=== PATIENT | female | born 1990 | race Two or more races ===

== ENCOUNTER 2024-07-17 10:51 | Emergency (ER) | payer MEDICAID, OTHER ==
[~2024-07-17] VITALS: Ht 165.1 cm; Wt 114.6 kg
[2024-07-17 12:17] LABS: Urine Bacteria FEW /hpf (None Seen); Urine Blood 2+ /uL (Negative); Urine Clarity Clear (Clear); Urine Color Colorless (Yellow); Urine Protein, UAD Negative (Negative); Urine Specific Gravity 1.003 (1.001-1.035); Urine Urobilinogen Normal (Negative); Urine WBC 14 /hpf (0 - 5); Urine pH 6.5 (5.0-9.0)
--- NOTE | 2024-07-17 13:10 | ED.PDOC ---
BEAM DYER HPI Comments 34y F who presents to the for chief complaint of vaginal bleeding. Pt states she has been having vaginal bleeding with associated vaginal spotting since 1 days prior. Pt LMP is 05/28/24. Pt states she is having associate suprapubic pain and is with 1 prior and unknown estimated date of delivery. Pt has stable vitals in the ED, with temp of 98.0 F and BP of 116/76. Pt otherwise denies any other symptoms at this time. Chief Complaint: Vaginal Bleed Time Seen by MD: 13:08 Reviewed Notes: Nurses Notes Allergies: Coded Allergies: NO KNOWN ALLERGIES (Unverified , 07/17/24) Information Source: Patient Constitutional: denies: chills, diaphoresis, fatigue, fever, malaise, sweats, weakness, others EENTM: denies: blurred vision, double vision, ear bleeding, ear discharge, ear drainage, ear pain, ear ringing, eye pain, eye redness, hearing loss, mouth pain, mouth swelling, nasal discharge, nose bleeding, nose congestion, nose pain, photophobia, tearing, throat pain, throat swelling, voice changes, others Respiratory: denies: cough, hemoptysis, orthopnea, SOB at rest, shortness of breath, SOB with excertion, stridor, wheezing, others Cardiovascular: denies: chest pain, dizzy spells, diaphoresis, Dyspnea on exertion, edema, irregular heart beat, left arm pain, lightheadedness, palpitations, PND, syncope, others Gastrointestinal: denies: abdomen distended, abdominal pain, blood streaked bowels, constipated, diarrhea, dysphagia, difficulty swallowing, hematemesis, melena, nausea, poor appetite, poor fluid intake, rectal bleeding, rectal pain, vomiting, others Genitourinary: reports: abnormal vagina bleeding; denies: burning, dyspareunia, dysuria, flank pain, frequency, hematuria, incontinence, pain, , vagina discharge, urgency, others Neurological: denies: dizziness, fainting, headache, left sided numbness, left sided weakness, numbness, paresthesia, pre-existing deficit, right sided numbness, right sided weakness, seizure, speech problems, tingling, tremors, weakness, others Musculoskeletal: denies: back pain, gout, joint pain, joint swelling, muscle pain, muscle stiffness, neck pain, others Integumetry: denies: bruises, change in color, change in hair/nails, dryness, laceration, lesions, lumps, rash, wounds, others Allergic/Immunocompromised: denies: Difficulty Healing, Frequent Infections, Hives, Itching, others Hematologic/Lymphatic: denies: anemia, blood clots, easy bleeding, easy bruising, swollen glands, others Endocrine: denies: excessive hunger, excessive sweating, excessive thirst, excessive urination, flushing, intolerance to cold, intolerance to heat, unexplained weight gain, unexplained weight loss, others Psychiatric: denies: anxiety, bipolar disorder, depression, hopeless, panic disorder, schizophrenia, sleepless, suicidal, others All Other Systems: Reviewed and Negative Physical Exam General Appearance: No Apparent Distress, Normal HEENT: Normal ENT Inspection, Pharynx Normal, TMs Normal Neck: Full Range of Motion, Non-Tender, Normal, Normal Inspection Respiratory: Chest Non-Tender, Lungs Clear, No Accessory Muscle Use, No Respiratory Distress, Normal Breath Sounds Cardiovascular: No Edema, No JVD, No Murmur, No Gallop, Normal Peripheral Pulses, Regular Rate/Rhythm Breast Exam: Deferred Gastrointestinal: Suprapubic (tenderness but pain is minimal), Tenderness Genitalia: Deferred Pelvic: Deferred Rectal: Deferred Extremities: No calf tenderness, Normal capillary refill, Normal inspection, Normal range of motion, Non-tender, No pedal edema Musculoskeletal : Apperance: Normal Neurologic: Alert, financial administrative assistant II-XII nml as Tested, No Motor Deficits, Normal Affect, Normal Mood, No Sensory Deficits Cerebellar Function: Normal Reflexes: Normal Skin: Dry, Normal Color, Warm Lymphatic: No Adenopathy Was a procedure done? Was a procedure done?: No Differential Diagnosis (TRAVELING BUYER) Vaginal Bleeding: - Complete, - Incomplete, - Inevitable, - Missed, Abruptio Placentae, Ectopic , Hormonal, UTI, Vaginitis X-Ray, Labs, Meds, VS Vital Signs Date Time Temp Pulse Resp B/P (MAP) Pulse Ox O2 Delivery O2 Flow Rate FiO2 07/17/24 17:30 80 18 109/67 (81) 98 07/17/24 17:30 80 18 98 Room Air* 0 21 07/17/24 15:33 69 20 99 Room Air 07/17/24 15:33 98.8 80 20 126/75 (92) 99 98.8 07/17/24 11:16 98.0 70 18 116/76 (89) 98 Lab Test 07/17/24 13:26 07/17/24 11:55 Range/Units Beta HCG, Quantitative 77858.8 H 1.5-4.2 mIU/mL Urine Color Colorless Yellow Urine Clarity Clear Clear Urine pH 6.5 5.0-9.0 Urine Specific [place] 1.003 1.001-1.035 Urine Protein Negative Negative Urine Ketones Negative Negative Urine Blood 2+ H Negative /uL Urine Nitrite Negative Negative Urine Bilirubin Negative Negative Urine Urobilinogen Normal Negative mg/dL Urine Leukocyte Esterase 2+ Negative /uL Urine RBC 1 0 - 4 /hpf Urine WBC 14 0 - 5 /hpf Urine Squamous Epithelial Cells Few <5 /hpf Urine Bacteria Few H None Seen /hpf Urine Glucose Normal Normal mg/dL Urine Test Positive Negative Current Medications Medications (Trade) Dose Ordered Sig/Jordana Route Start Time Stop Time Status Last Admin Cephalexin (Keflex Capsule) 500 mg ONCE ONCE PO 07/17/24 17:00 07/17/24 17:23 DC 07/17/24 17:30 Time of 1ST Reevaluation: 13:40 Reevaluation 1ST: Unchanged Time of 2ND Reevaluation: 18:12 Reevaluation 2ND: Improved Patient Education/Counseling: Diagnosis, Treatment Family Education/Counseling: No Family Present Additional Information - I reviewed the following notes from patient's past medical encounters: - The following tests were ordered, and results were reviewed by me: (Labs): UA, urine test - Additional information was gathered from interviewing the following independent Historian: (Family) - I reviewed and agreed with the following test results read by other provider: ( US): none - I discussed treatments and results with medical personnel and: ( family): none Departure 1 Departure Time of Disposition: 18:13 Impression: Primary Impression: UTI (urinary tract infection) Qualified Codes: N30.00 - Acute cystitis without hematuria Additional Impression: Miscarriage, threatened, early Disposition: 01 HOME / SELF CARE / HOMELESS Condition: Good Additional Instructions: follow up with y our doctor in 2 days e-Prescriptions Cephalexin Monohydrate (Cephalexin) 500 Mg Cap 500 MG PO Q6HR for 7 Days, #28 MG Prov: GORDON NEWELL MD 07/17/24 Discharged With: Self Critical Care Note Critical Care Time?: No Stability Stability form required: No Heart Score Heart Score: Heart Score Response (Comments) Value History N/A 0 EKG N/A 0 Age N/A 0 Risk Factors N/A 0 Troponin N/A 0 Total 0 I personally scribed for GORDON NEWELL MD ([email or web address]) on 07/17/24 at 13:09. Electronically submitted by Josse Ji ([facility]). GORDON NEWELL MD Jul 17, 2024 13:09
--- NOTE | 2024-07-17 14:11 | DVH ---
OB ULTRASOUND <14 WEEKS: HISTORY: VAG BLEED TECHNIQUE: Multiple real-time grayscale sonographic images of the pelvis with duplex Doppler color f low, spectral and M-mode analysis. TRANSDUCERS: Transabdominal and transvaginal COMPARISON: None FINDINGS: The uterus measures 13.2 x 8.6 x 7.0 cm The cervix is not visualized. Right ovary measures 4.9 x 2.5 x 2.9 cm with normal Doppler color flow. Right ovarian cysts are prese nt measuring up to 2.9 cm. Left ovary measures 3.2 x 1.9 x 2.2 cm with normal Doppler color flow. IUP single fetus at 6 weeks and 4 days average ultrasound age based on mean crown-rump length of 0.7 cm and gestational sac size of 1.8 cm heart rate detected at 132 beats per minute. Yolk sac is present. Amniotic fluid is subjectively within normal limits Megan-gestational space: Subchorionic hematoma is present measuring 1.6 cm. IMPRESSION: IUP single live fetus 6 weeks and 4 days AUA corresponding to an STEVEN of 03/08/2025. Small subchorionic hematoma is present measuring 1.6 cm.
[2024-07-17 15:33] VITALS: TEMP 98.8
[2024-07-17 17:30] VITALS: BP 109/67; PULSE 80; RESP 18; O2SAT 98
[2024-07-17] MEDS: CEPHALEXIN 250 MG CAP PO ONE (17:30)
[2024-07-17] MEDS ORDERED: CEPH500C PO (18:14)
== END 2024-07-17 18:40 | disposition home or self-care (01) ==
LOC: ER 10:51
DX: O20.0 Threatened abortion (principal); O23.41 Unspecified infection of urinary tract in pregnancy, first trimester; N39.0 Urinary tract infection, site not specified; Z3A.01 Less than 8 weeks gestation of pregnancy
CPT/HCPCS: 36415; 76801; 76817; 81001; 81025; 84702; 86901

== ENCOUNTER 2025-01-26 08:49 | Outpatient (CLI) | payer MEDICAID ==
[~2025-01-26 08:49] MED LIST: CEPH500C PO; NITR-87 PO; PHEN-922 PO
[2025-01-27 10:30] LABS: Hematocrit 40.5 % (36.0-46.0); Hemoglobin 13.6 g/dL (12.2-16.2); Mean Corpuscular Hemoglobin 29.5 pg (28.0-32.0); Mean Corpuscular Volume 88.0 fL (80.0-100.0); Nucleated Red Blood Cells % 0.1 %
[2025-01-27 11:25] LABS: Amphetamine Screen, Urine Neg (NEGATIVE); Barbiturate Scree,Urine Neg (NEGATIVE); Benzodiazephine Screen, Urine Neg (NEGATIVE); Cocaine Screen, Urine Neg (NEGATIVE); Opiate Scree,Urine Neg (NEGATIVE); Phencyclidine Screen, Urine Neg (NEGATIVE)
[2025-01-27 11:27] LABS: Cannabinoid Screen, Urine Neg (NEGATIVE)
== END 2025-01-26 19:28 | disposition home or self-care (01) ==
LOC: LAB 08:49
PROVIDERS: ATTEND Obstetrics & Gynecology
DX: O23.40 Unspecified infection of urinary tract in pregnancy, unspecified trimester (principal); N39.0 Urinary tract infection, site not specified; Z31.430 Encounter of female for testing for genetic disease carrier status for procreative management; Z20.09 Contact with and (suspected) exposure to other intestinal infectious diseases; Z3A.00 Weeks of gestation of pregnancy not specified
CPT/HCPCS: 36415; 80307; 82951; 83036; 84144; 84702; 85025; 86703; 86762; 86780; 86850; 86900; 86901; 87086; 87340

== ENCOUNTER 2025-02-02 16:44 | Observation (INO) | payer SELFPAY ==
[~2025-02-02] VITALS: Ht 172.7 cm; Wt 122.5 kg
--- NOTE | 2025-02-02 17:47 | DVH ---
BIOPHYSICAL PROFILE HISTORY: FALL/GDMA1 TECHNIQUE: Multiple transabdominal real-time grayscale sonographic images through the gravid uterus of the fetus with duplex Doppler color flow and M-mode spectral analysis FINDINGS: BIOPHYSICAL PROFILE: breathing score: 2 movement score: 2 tone score: 2 Quantitative LOLA score: 2 (LOLA: 17.4 Cm.) Total score: 8 4/8 The cervix not measured Single live fetus in breech presentation. heart rate 136 beats per minute. Anterior Grade 2 placenta without previa or abruption Single live fetus at35 weeks 4 days. Possible nuchal cord Biophysical profile score 8/8 corresponding to an STEVEN of 03/05/2025 IMPRESSION: 1. Biophysical profile score: 8/8
[2025-02-02 20:01] LABS: Urine Protein, UAD Negative (Negative)
[2025-02-02] MEDS: LACTATED RINGER'S 1,000 ML IV ONE (20:42)
[2025-02-02] MEDS ORDERED: CEPH250C PO (22:20)
--- NOTE | 2025-02-03 14:16 | DVHDS2 ---
Physician Discharge Progress N Final Diagnosis: s/p fall 35wks,gdm Operations or Procedures: Operations or Procedures nst reactive reviwed,sono Condition on Discharge: Good Disposition: Home Discharge Instructions: Diet: Consistent carbohydrate Activity: No Restrictions, As Tolerated Medications: na Follow Up Care: Specialist: 2d Discharge Statement: "Patient was advised to return to the ER or call 911 if any headaches, dizziness, shortness of breath, chest pain, abdominal pain, bleeding, fevers, or worsening of medical condition. Patient was counseled about treatment plan, medications, possible side effects, patientverbalized understanding. All questions were answered to the best of my ability. This discharge took greater then 30 minutes in planning, reviewing documentation, counseling the patient, and discussing with other team members." Visit Coding OBGYN Date of Service: Feb 02, 2025 Billing Provider: AZAR FISHER DO DIRECTOR OF PARKS AND RECREATION Common Visit Codes: 60035-UGBZFZJ OBS CARE (HIGH) DIRECTOR OF PARKS AND RECREATION Procedure Codes: 87915-64- NON-STRESS TEST AZAR FISHER DO Feb 03, 2025 14:16
== END 2025-02-02 21:15 | disposition home or self-care (01) ==
LOC: LDRP 16:44
PROVIDERS: ADMIT Obstetrics & Gynecology; ATTEND Obstetrics & Gynecology
DX: O24.419 Gestational diabetes mellitus in pregnancy, unspecified control (principal); Z98.890 Other specified postprocedural states; Z79.899 Other long term (current) drug therapy; Z3A.35 35 weeks gestation of pregnancy; W18.39XA Other fall on same level, initial encounter; Y93.89 Activity, other specified; Y92.89 Other specified places as the place of occurrence of the external cause; Y99.8 Other external cause status
CPT/HCPCS: 76818; 81001; 81002; 82962; 84112; 94760; 96360; G0378; 59025; 76819

== ENCOUNTER 2025-02-09 07:37 | Observation (INO) | payer SELFPAY ==
[~2025-02-09 07:37] MED LIST changes: +CEPH250C PO
--- NOTE | 2025-02-09 12:44 | DVH ---
CLINICAL HISTORY: Gestational diabetes. COMPARISON: US BIOPHYSICAL PROFILE on DOS: 02/02/25 TECHNIQUE: biophysical profile was performed. Transabdominal sonographic images of the fetus we re obtained. FINDINGS: The fetus is in breech position. heart rate measures 139 BPM. Amniotic fluid index me asures 25.6 cm. The placenta is anterior in position without visualized evidence for previa or abrupt ion. BPP profile is an overall score of 8/8, with 2/2 points for breathing, with at least one episode of breathing over a 30 second duration during a 30 minute observation, 2/2 points for m ovements, with 3 or more discrete body or limb movements, 2/2 points for tone, with one or more episodes of extremity extension with return to flexion, or opening and closing of hand, and 2/ 2 points for amniotic fluid, with at least 1 pocket of amniotic fluid that measures 2 cm in 2 perpend icular planes. IMPRESSION: 1. BPP score of 8/8. 2. Breech position. 3. Amniotic fluid index of 25.6.
[2025-02-09] MEDS ORDERED: PREN-96 PO (12:58)
--- NOTE | 2025-02-09 13:33 | DVHDS2 ---
Physician Discharge Progress N Final Diagnosis: testing for GDM, A1 Secondary Diagnosis: polyhydramnios Operations or Procedures: Operations or Procedures 35yo IUP@36.4wks VSS NST reactive FKC/PTL precautions reviewed Dr. Weiss consulted, agrees with POC. Other Interventions Other Interventions [address] [address] Ph: [phone] DIAGNOSTIC IMAGING Diagnostic Imaging Report : [id number] Signed PATIENT: ALEXANDRU MUÑOZ LACCT: [id number] UNIT: [id number] : 1990 LOC: LD ROOM / BED: [facility] / A AGE / SEX: 35 / F ADM STATUS: ADM IN SERVICE 115 ORDERING PHYSICIAN: CARLOS ALBERTO YANEZ CNM PROCEDURE(s): BPP - BIOPHYSICAL PROFILE REASON: GDMA2 ORDER NUMBER(s): [id number], ACCESSION NUMBER(s): [id number] CLINICAL HISTORY: Gestational diabetes. COMPARISON: US BIOPHYSICAL PROFILE on DOS: 02/02/25 TECHNIQUE: biophysical profile was performed. Transabdominal sonographic images of the fetus were obtained. FINDINGS: The fetus is in breech position. heart rate measures 139 BPM. Amniotic fluid index measures 25.6 cm. The placenta is anterior in position without visualized evidence for previa or abruption. BPP profile is an overall score of 8/8, with 2/2 points for breathing, with at least one episode of breathing over a 30 second duration dur ing a 30 minute observation, 2/2 points for movements, with 3 or more discrete body or limb movements, 2/2 points for tone, with one or more episodes of extremity extension with return to flexion, or opening and closing of hand, and 2/2 points for amniotic fluid, with at least 1 pocket of amniotic fluid that measures 2 cm in 2 perpendicular planes. IMPRESSION: 1. BPP score of 8/8. 2. Breech position. 3. Amniotic fluid index of 25.6. ATED BY: LEX GILMORE DO DICTATED DATE/TIME: 02/09/25 1241 SIGNED BY: LEX GILMORE DO SIGNED DATE/TIME: 02/09/25 1241 CC: Condition on Discharge: Stable Disposition: Home Discharge Instructions: Diet: Consistent carbohydrate Activity: No Restrictions, As Tolerated Medications: see med list Follow Up Care: Specialist: f/u in 1wk Discharge Statement: "Patient was advised to return to the ER or call 911 if any headaches, dizziness, shortness of breath, chest pain, abdominal pain, bleeding, fevers, or worsening of medical condition. Patient was counseled about treatment plan, medications, possible side effects, patientverbalized understanding. All questions were answered to the best of my ability. This discharge took greater then 30 minutes in planning, reviewing documentation, counseling the patient, and discussing with other team members." Visit Coding OBGYN Date of Service: Feb 09, 2025 Billing Provider: CARLOS ALBERTO YANEZ CNM DEPUTY CLERK Common Visit Codes: 78905-[id number] OBS CARE (HIGH) DEPUTY CLERK Procedure Codes: 58606-94- NON-STRESS TEST CARLOS ALBERTO YANEZ CNM Feb 09, 2025 13:33
== END 2025-02-09 13:16 | disposition home or self-care (01) ==
LOC: LDRP 11:53
PROVIDERS: ADMIT Obstetrics & Gynecology; ATTEND Obstetrics & Gynecology
DX: O24.419 Gestational diabetes mellitus in pregnancy, unspecified control (principal); O40.3XX0 Polyhydramnios, third trimester, not applicable or unspecified; Z3A.36 36 weeks gestation of pregnancy; Z98.890 Other specified postprocedural states; Z79.899 Other long term (current) drug therapy
CPT/HCPCS: 76818; 81002; 82948; 94760; G0378; 59025; 76819

== ENCOUNTER 2025-02-16 00:47 | Observation (INO) | payer SELFPAY ==
[~2025-02-16 00:47] MED LIST changes: +PREN-96 PO
--- NOTE | 2025-02-16 13:52 | DVHDS2 ---
Physician Discharge Progress N Final Diagnosis: testing for GDM, A1 Operations or Procedures: Operations or Procedures 35yo IUP@37.4wks VSS NST reactive FKC/Labor precautions reviewed. Condition on Discharge: Stable Disposition: Home Discharge Instructions: Diet: Consistent carbohydrate Activity: No Restrictions, As Tolerated Follow Up/Referral: as scheduled. Medications: see med list Follow Up Care: Specialist: f/u in 1 wk Discharge Statement: "Patient was advised to return to the ER or call 911 if any headaches, dizziness, shortness of breath, chest pain, abdominal pain, bleeding, fevers, or worsening of medical condition. Patient was counseled about treatment plan, medications, possible side effects, patientverbalized understanding. All questions were answered to the best of my ability. This discharge took greater then 30 minutes in planning, reviewing documentation, counseling the patient, and discussing with other team members." Visit Coding OBGYN Date of Service: Feb 16, 2025 Billing Provider: CARLOS ALBERTO YANEZ CNM ALLERGIST/MD Common Visit Codes: 49322-[id number] OBS CARE (HIGH) ALLERGIST/MD Procedure Codes: 06024-28- NON-STRESS TEST CARLOS ALBERTO YANEZ CNM Feb 16, 2025 13:52
--- NOTE | 2025-02-16 17:30 | DVH ---
OB ULTRASOUND, LIMITED CLINICAL INDICATION: GDMA1 TECHNIQUE: Multiple grayscale ultrasound and M-mode images were obtained of the pelvis for evaluation of intrauterine . COMPARISON: US BIOPHYSICAL PROFILE on DOS: 02/09/25, US BIOPHYSICAL PROFILE on DOS: 02/02/25 FINDINGS: A single living fetus is seen in cephalic presentation. Biophysical profile: 02/26 breathin movements: 2 tone: 2 Amniotic fluid: 2 Placenta: Anterior. Amniotic fluid: Visibly normal. LOLA 18.3 cm heart rate: 140 beats/min. A complete anatomic survey was not performed on this exam. IMPRESSION: Biophysical profile: 02/26
== END 2025-02-16 13:55 | disposition home health service (06) ==
LOC: LDRP 12:00
PROVIDERS: ADMIT Obstetrics & Gynecology; ATTEND Obstetrics & Gynecology
DX: O24.419 Gestational diabetes mellitus in pregnancy, unspecified control (principal); Z98.890 Other specified postprocedural states; Z79.899 Other long term (current) drug therapy; Z3A.37 37 weeks gestation of pregnancy
CPT/HCPCS: 76818; 81002; 82948; 82962; 94760; G0378; 59025; 76819

== ENCOUNTER 2025-02-23 07:29 | Observation (INO) | payer SELFPAY ==
--- NOTE | 2025-02-24 11:02 | DVH ---
CLINICAL HISTORY: Gestational diabetes. COMPARISON: US BIOPHYSICAL PROFILE on DOS: 02/16/25, US BIOPHYSICAL PROFILE on DOS: 02/09/25, US BIOPHY SICAL PROFILE on DOS: 02/02/25 TECHNIQUE: biophysical profile was performed. Transabdominal sonographic images of the fetus we re obtained. FINDINGS: The fetus is in cephalic position. heart rate measures 138 BPM. Amniotic fluid index measures 17.3 cm. The placenta is anterior in position without evidence of previa or abruption. BPP profile is an overall score of 8/8, with 2/2 points for breathing, with at least one episode of breathing over a 30 second duration during a 30 minute observation, 2/2 points for m ovements, with 3 or more discrete body or limb movements, 2/2 points for tone, with one or more episodes of extremity extension with return to flexion, or opening and closing of hand, and 2/ 2 points for amniotic fluid, with at least 1 pocket of amniotic fluid that measures 2 cm in 2 perpend icular planes. IMPRESSION: BPP score of 8/8.
--- NOTE | 2025-02-24 14:25 | DVHDS2 ---
Physician Discharge Progress N Final Diagnosis: gdm 38wks Operations or Procedures: Operations or Procedures nst reactive reviwed,sono Condition on Discharge: Good Disposition: Home Discharge Instructions: Diet: Consistent carbohydrate Activity: Light activity Medications: na Follow Up Care: Specialist: 2d Discharge Statement: "Patient was advised to return to the ER or call 911 if any headaches, dizziness, shortness of breath, chest pain, abdominal pain, bleeding, fevers, or worsening of medical condition. Patient was counseled about treatment plan, medications, possible side effects, patientverbalized understanding. All questions were answered to the best of my ability. This discharge took greater then 30 minutes in planning, reviewing documenta tion, counseling the patient, and discussing with other team members." Visit Coding OBGYN Date of Service: Feb 24, 2025 Billing Provider: AZAR FISHER DO SOLIDWORKS DRAFTER Common Visit Codes: 77866-CCJLRKS OBS CARE (HIGH) SOLIDWORKS DRAFTER Procedure Codes: 04374-96- NON-STRESS TEST AZAR FISHER DO Feb 24, 2025 14:25
== END 2025-02-24 11:36 | disposition home or self-care (01) ==
LOC: LDRP 02-24 10:04
PROVIDERS: ADMIT Obstetrics & Gynecology; ATTEND Obstetrics & Gynecology
DX: O24.419 Gestational diabetes mellitus in pregnancy, unspecified control (principal); Z3A.38 38 weeks gestation of pregnancy; Z79.899 Other long term (current) drug therapy; Z98.890 Other specified postprocedural states
CPT/HCPCS: 76818; 81002; 82948; 82962; 94760; G0378; 59025; 76819

== ENCOUNTER 2025-02-26 05:18 | Inpatient (IN) | payer SELFPAY ==
[2025-02-24 11:06] LABS: Urine Protein, UAD 1+ (Negative)
[2025-02-24 11:13] LABS: Amphetamine Screen, Urine Neg (NEGATIVE); Barbiturate Scree,Urine Neg (NEGATIVE); Benzodiazephine Screen, Urine Neg (NEGATIVE); Cannabinoid Screen, Urine Neg (NEGATIVE); Cocaine Screen, Urine Neg (NEGATIVE); Opiate Scree,Urine Neg (NEGATIVE); Phencyclidine Screen, Urine Neg (NEGATIVE)
[2025-02-24 12:02] LABS: INR 0.93 (0.9-1.15); Prothrombin Time 9.9 sec (9.3-11.8)
[2025-02-24 12:03] LABS: Partial Thromboplastin Time 30.2 SEC (24.5-34.5)
[2025-02-24 12:12] LABS: Alanine Aminotransferase 29 U/L (7-40); Albumin 3.8 g/dL (3.2-4.8); Anion Gap 10 (5-15); BUN/Creatinine Ratio 10.2 (10.0-20.0); Blood Urea Nitrogen 10 mg/dL (9-23); Calcium 9.0 mg/dL (8.7-10.4); Carbon Dioxide 23 mmol/L (20-31); Chloride 105 mmol/L (98-107); Potassium 4.3 mmol/L (3.5-5.1); Sodium 138 mmol/L (136-145); Total Protein 6.0 g/dL (5.7-8.2)
[2025-02-24 12:13] LABS: Alkaline Phosphatase 163 U/L (46-116); Bilirubin, Total 0.5 mg/dL (0.2-1.0); Glucose 132 mg/dL (74-106)
[2025-02-24 12:23] LABS: Hematocrit 39.5 % (36.0-46.0); Hemoglobin 13.3 g/dL (12.2-16.2); Mean Corpuscular Hemoglobin 29.9 pg (28.0-32.0); Mean Corpuscular Volume 88.5 fL (80.0-100.0); Nucleated Red Blood Cells % 0.1 %
[2025-02-26] VITALS (15 sets, daily range): BP systolic 102–130; BP diastolic 50–83; PULSE 71–93; RESP 16–18; TEMP 98.7–99.2; O2SAT 94–100
[~2025-02-26] VITALS: Ht 165.1 cm; Wt 120.7 kg
[2025-02-26] MEDS: SODIUM CITR/CITRIC ACID ORAL SOLN 30 ML PO ONE (05:30)
[2025-02-26] MEDS: LACTATED RINGER'S 1,000 ML IV ONE (05:30)
[2025-02-26] MEDS: METOCLOPRAMIDE HCL 5MG/ml INJ 2ml VIAL IV ONE ×2 (05:30→10:00)
[2025-02-26] MEDS: LACTATED RINGER'S 1,000 ML IV SCH (06:17)
[2025-02-26] MEDS: ceFAZolin 2 GM/D5W50ml 50 ML IV ONE (08:23)
[2025-02-26] MEDS ORDERED: MORPHINE SULF PF 5 MG/10 ML VIAL ONE (08:42)
[2025-02-26] MEDS ORDERED: PHENYLEPHRINE HCL 10 MG/ML VL ONE (09:10)
[2025-02-26] MEDS ORDERED: ONDANSETRON HCL 4 MG/2 ML VIAL ONE (09:14)
[2025-02-26] MEDS: CARBOPROST TROMETHAMINE 250 MCG/1ML VIAL IM ONE (09:18)
[2025-02-26] MEDS: DIPHENOXYLATE W/ATROPINE 2.5 MG TAB ONE (09:26)
[2025-02-26] MEDS: LACT. RINGERS/OXYTOCIN 20UNITS 1,000 ML IV ONE (09:30)
[2025-02-26] MEDS: GUM (CHEWING) 1 GUM CHEW CHEW ONE (09:30)
[2025-02-26] MEDS ORDERED: ceFAZolin 1GM/50ML 50 ML IV SCH (09:30)
--- NOTE | 2025-02-26 09:34 | POSTOP ---
Post-Operative Note Post-Operative Note Preop Diagnosis term preg deisres rcs,morbid obesity Postop Diagnosis: same,nuchal cord Operation performed rcs Specimen bbay girl,apgars 9-9,wt 6-14 Anesthesia: Regional Anesthesiologist: deongyderick Blood Loss(fluid mgmt) 800ml Surgeon Gianna Weiss Grounds Restoration Specialist annette Implant na Complications & Mgmt none Date 02/26/25 Time 09:32 Visit Coding OBGYN Date of Service: Feb 26, 2025 Billing Provider: GIANNA WEISS DO COSMETIC CHEMIST Common Visit Codes: 27452-[id number] INP/OBS CARE(MOD), 29640-[id number] INP/OBS CARE(HIGH) COSMETIC CHEMIST Procedure Codes: 81073-R-[id number] DELIVERY ONLY GIANNA WEISS DO Feb 26, 2025 09:34
--- NOTE | 2025-02-26 09:36 | DVHOP2 ---
Operative Report DATE OF OPERATION:02/26/25 PREOPERATIVE DIAGNOSES: [iup at 39wks desires rcs,previous csx1,morbid obesity,gdm] POSTOPERATIVE DIAGNOSES: [same,op] OPERATION PERFORMED: Repeat Section FINDINGS: [f] infant. Apgars of [9] and [9]. Weight [good] crying tone. [clear] amniotic fluid. Placenta and three-vessel were intact. Normal tubes, ovaries, and uterus. nuchal cordx1 SURGEON: Gianna Fisher D.O. BREAK OFF WORKER: biomedical electronics technician, bogdan]. ANESTHESIOLOGIST: Bere jackson ANESTHESIA: [Duramorph spinal, regional]. COMPLICATIONS: [none]. ESTIMATED BLOOD LOSS: [800] mL. BLOOD PRODUCTS USED: [none]. PROCEDURE IN DETAIL: The patient was taken to the operating room, placed in sitting position, and spinal was placed without difficulty. She was then prepped and draped in a sterile fashion. A low Pfannenstiel incision was made scapel. At this point, it was carried down through the rectus fascia, nicked in the midline, and carried laterally. The rectus muscles were in the midline. Peritoneum was identified and entered with sharp dissection. Vesicouterine peritoneum was taken off the lower uterine segment. A lower uterine transverse incision was made with a scalpel down the chorionic membranes, ruptured with hemostat. Infant was in vertex position. One hand was placed in the lower uterine segment. Head was essentially delivered spontaneously. Nose and mouth were bulb suctioned. Shoulders and torso were delivered without difficulty. Again, pharynx, nose, and mouth were re-suctioned with vigorous crying tone. Cord was cut. The was handed off to the awaiting Respiratory. At this point, umbilical blood sample was taken. Placenta was removed. Uterus was exteriorized, cleared off all clots and debris, irrigated, and closed with a double layer of 0-Vicryl. The vesicouterine peritoneum was incorporated into this closure. We had complete hemostasis. EBL was [800] mL. The instrument, lap, and sponge count was correct x1. The uterus was placed back into the peritoneum. The peritoneal cavity was re-inspected and the lower uterine incision with good hemostasis. We closed the peritoneum with running continuous of 2-0 Vicryl. The Rectus Fascia was closed with 0-PDS, running continuous, looped-0. The skin was closed undermined, irrigated, and close with otf. CONDITION: The patient's and the 's condition is stable and but guarded. Visit Coding OBGYN Date of Service: Feb 26, 2025 Billing Provider: GIANNA FISHER DO RN PAIN MANAGEMENT Common Visit Codes: 46634-[id number] INP/OBS CARE(HIGH) RN PAIN MANAGEMENT Procedure Codes: 85103-N-[id number] DELIVERY ONLY GIANNA FISHER DO Feb 26, 2025 09:36
[2025-02-26] MEDS ORDERED: HYDR-4072 PO (09:39)
[2025-02-26] MEDS ORDERED: CEPH500C PO (09:39)
[2025-02-26] MEDS ORDERED: DOCU-94 PO (09:39)
[2025-02-26] MEDS ORDERED: IBUP-1456 PO (09:39)
[2025-02-26] MEDS ORDERED: HYDROmorphone HCL 2 MG/ML VL/or syr IV PRN ×2 (10:00)
[2025-02-26] MEDS ORDERED: ACETAMINOPHEN IV 1000 MG/100ML (10MG/ML) IV PRN ×2 (10:00→20:00)
[2025-02-26] MEDS: NALBUPHINE HCL 10 MG/1ml INJECTION SUBCUT ONE (10:00)
[2025-02-26] MEDS ORDERED: MEPERIDINE HCL (25 MG/ML) 1ML VIAL IV PRN (10:00)
[2025-02-26] MEDS ORDERED: NALOXONE HCL 0.4 MG/ML VIAL IV PRN (10:00)
[2025-02-26] MEDS ORDERED: diphenhdrAMINE HCL 50 MG/1 ML VL IV PRN (10:00)
[2025-02-26] MEDS ORDERED: KETOROLAC TROMETH 30 MG/ML 1ML VIAL IV PRN (10:00)
[2025-02-26] MEDS ORDERED: ONDANSETRON HCL 4 MG/2 ML VIAL IV PRN ×2 (10:00→13:00)
[2025-02-26] MEDS: ONDANSETRON HCL 4 MG/2 ML VIAL IV ONE (10:00)
--- NOTE | 2025-02-26 14:13 | DVHHP2 ---
OB CC & HPI Date Date of Admission: Feb 26, 2025 Patient Identification: : 2 Para: 1 EDC: Mar 05, 2025 EGA: 39 wks Chief Complaints: Reason for admission: other (early labor) Indication for : desires repeat Admission Nurse Assessment Rev: No History of Present Complaints pt is admitted for early labor,no rom or vag bleeding.pt desires rcs Past Medical History Cardiac: No pertinent Hx Pulmonary: No pertinent Hx Central Nervous System: No pertinent Hx GI: No pertinent Hx Hemotology/Oncology: No pertinent Hx Hepatobiliary: No pertinent Hx Psychiatric: No pertinent Hx Musculoskeletal: No pertinent Hx Rheumotologic: No pertinent Hx Infectious Disease: No peritnent Hx ENT: No pertinent Hx Renal/: No pertinent Hx Endocrine: No pertinent Hx Dermatology: No pertinent Hx Past Surgical History: OB History OB History Care: Good Care Ultrasounds: Normal mid trimester US Obstetrical Complications: None, Gestational Diabetes Medical Complications: None Allergies: Coded Allergies: NO KNOWN ALLERGIES (Unverified , 07/17/24) Home Meds Active Scripts Ibuprofen (Ibuprofen) 800 Mg Tab, 800 MG PO TID PRN for 5 Days, #21 TAB Prov:AZAR FISHER DO 02/26/25 Hydrocodone-Acetaminophen (Hydrocodone/Acetaminophen 10-325 mg) 1 Tab Tab, 1 TAB PO Q6HPRN PRN for 7 Days, #28 TAB Prov:AZAR FISHER DO 02/26/25 Docusate Sodium (Colace) 100 Mg Cap, 1 CAP PO BID, #60 CAP 2 Refills Prov:AZAR FISHER DO 02/26/25 Cephalexin Monohydrate (Cephalexin) 500 Mg Cap, 500 MG PO QID for 7 Days, CAP Prov:AZAR FISHER DO 02/26/25 Cephalexin (KEFLEX CAPSULE) 250 Mg Cp, 500 MG PO QID for 7 Days, #28 CAP Prov:CARLOS ALBERTO YANEZ CNM 02/02/25 Phenazopyridine HCl (Phenazopyridine Hydrochlo) 200 Mg Tab, 200 MG PO TID, #6 TAB Prov:JANENE DIAZ 10/22/ Nitrofurantoin Monohydrate Mac (Macrobid) 100 Mg Cap, 100 MG PO BID, #20 CAP Prov:JANENE DIAZ 10/22/24 Cephalexin Monohydrate (Cephalexin) 500 Mg Cap, 500 MG PO Q6HR for 7 Days, #28 MG Prov:GORDON NEWELL MD 07/17/24 Reported Medications Vit W/ Ferrous Fumara ( One Daily) Daily Tab, 1 TAB PO DAILY, #90 TAB 3 Refills 02/09/25 Current Medications Current Medications Medications (Trade) Dose Ordered Sig/Jordana Route PRN Reason Start Time Stop Time Status Last Admin Lactated Ringer's 1,000 ml @ 125 mls/hr Q8H IV 02/26/25 05:30 02/26/25 06:17 Ondansetron HCl (Zofran) 4 mg Q4HP PRN IV NAUSEA / VOMITING 02/26/25 13:00 Cefazolin Sodium 50 ml @ 100 mls/hr Q8H IV 02/26/25 09:30 02/27/25 01:59 Acetaminophen (Ofirmev) 1,000 mg [id number] PRN IV PAIN SCALE 1-3 02/26/25 10:00 02/26/25 10:17 DC Hydromorphone HCl (Dilaudid Injection) 0.5 mg Q10M PRN IV SEVERE PAIN (7-10 PAIN SCALE) 02/26/25 10:00 02/26/25 10:41 DC Meperidine HCl (Demerol Injection) 25 mg Q10M PRN IV MODERATE PAIN (4-6 PAIN SCALE) 02/26/25 10:00 02/26/25 10:31 DC Diphenhydramine HCl (Benadryl Injection) 25 mg Q4HP PRN IV FOR ITCHING 02/26/25 10:00 Ondansetron HCl (Zofran) 4 mg Q4HP PRN IV NAUSEA / VOMITING 02/26/25 10:00 02/26/25 13:01 DC Naloxone HCl (Narcan) 0.2 mg Q5M PRN IV For respirations < than 10/min 02/26/25 10:00 02/26/25 10:09 DC Hydromorphone HCl (Dilaudid Injection) 0.5 mg Q15M PRN IV SEVERE PAIN (7-10 PAIN SCALE) 02/26/25 10:00 02/26/25 10:31 DC Dexamethasone Sodium Phosphate (Decadron Injection) 10 mg MOTOR MECHANIC PRN IV FOR ITCHING 02/26/25 10:00 02/26/25 10:13 DC Ketorolac Tromethamine (Toradol Injection) 30 mg Q6HP PRN IV MODERATE PAIN (4-6 PAIN SCALE) 02/26/25 10:00 03/03/25 09:59 Family & Social History Family/Social History Blood Type: Unknown Rubella: unknown RPR/VDRL: Negative GBS Status: Negative HBsAG: Negative Review of Systems Constitutional: No symptom reported Ears, Nose, & Throat: No symptom reported Eyes: No symptom reported Pulmonary/Respiratory: No symptom reported Cardiovascular: No symptom reported Gastrointestinal: No symptom reported Genitourinary: No symptom reported Musculoskeletal: No symptom reported Skin: No symptom reported Psychiatric: No symptom reported Endocrine: No symptom reported Hemotologic/Lymphatic: No symptom reported OB Admission Exam Physical Exam Vitals: Vital Signs Date Time Temp Pulse Resp B/P (MAP) Pulse Ox O2 Delivery O2 Flow Rate FiO2 02/26/25 13:29 77 18 99 02/26/25 10:20 120/70 (87) 02/26/25 10:00 Nasal Cannula 2.0 95 02/26/25 09:50 97.0 97.0 HEENT: TMs Normal, Fontanelles Normal, Nasal Mucosa Normal, Eyes non-injected, Oropharynx Normal, PERRLA, Moist Membranes, EOMI Heart: Rhythm Normal Lungs: Clear Abdomen: Non tender Extremities: Normal Reflexes: Normal Cervical Dilatation: 1cm Effacement: 25% Station: -3 Membranes: Intact Heart Rate: 130's Accelerations: Accelerations Present Decelerations: No Decelerations Short Term Variability: Present Branch Credit Counselor Variability: Average (6-25) Contractions on Admission: < 5 Minutes Apart Intensity: Mild OB Plan Plan Admitting Diagnosis: iup at 39 wks in early labor ,previous csx1 desires REPEAT SECTION morbid obesity ,gdm Plan: Section Other Plan: informed consent obtained will proceed w/rcs risks and complication of cs d/w pt .pt fully understands Visit Coding OBGYN Date of Service: Feb 26, 2025 Billing Provider: AZAR FISHER DO BIOMEDICAL MANAGER Common Visit Codes: [id number] OBS CARE (HIGH) BIOMEDICAL MANAGER Procedure Codes: 19608-73- NON-STRESS TEST AZAR FISHER DO Feb 26, 2025 14:13
[2025-02-26] MEDS: ceFAZolin 1GM/50ML 50 ML IV SCH (16:53)
[2025-02-26 21:36] LABS: Hematocrit 36.6 % (36.0-46.0); Hemoglobin 12.2 g/dL (12.2-16.2); Mean Corpuscular Hemoglobin 29.9 pg (28.0-32.0); Mean Corpuscular Volume 89.9 fL (80.0-100.0); Nucleated Red Blood Cells % 0.0 %
[2025-02-27] VITALS (12 sets, daily range): BP systolic 97–141; BP diastolic 58–91; PULSE 60–97; RESP 16–20; TEMP 97.9–98.6; O2SAT 92–98
--- NOTE | 2025-02-27 01:19 | DVHPN2 ---
Progress Note Date Seen: Feb 27, 2025 Subjective S: -Lochia minimal -Regular diet well tolerated. -Attempted to ambulate x1 with RN and felt lightheaded. Will retry in 2-3 hours. Catheter discontinued, but patient has not voided yet -Pain relieved with oral medication PRN -Passing flatus but no BM yet. -Having trouble with because baby is not latching well. Would like to switch to combo feeding at this time. vital signs Vital Sign Date Time Temp Pulse Resp B/P (MAP) Pulse Ox O2 Delivery O2 Flow Rate FiO2 02/26/25 23:00 98.7 71 16 104/51 (68) 95 98.7 02/26/25 19:00 Room Air 02/26/25 10:00 2.0 95 Total Intake and Output 02/26/25 02/26/25 02/27/25 15:00 23:00 07:00 Output Total 1350 ml Balance -1350 ml medications Current Medications Medications Dose Ordered Sig/Jordana Route Start Time Stop Time Status Last Admin Dose Admin Lactated Ringer's 1,000 ml @ 125 mls/hr Q8H IV 02/26/25 05:30 02/26/25 15:09 125 MLS/HR Ondansetron HCl 4 mg Q4HP PRN IV 02/26/25 13:00 Diphenhydramine HCl 25 mg Q4HP PRN IV 02/26/25 10:00 Ketorolac Tromethamine 30 mg Q6HP PRN IV 02/26/25 10:00 03/03/25 09:59 Cefazolin Sodium 50 ml @ 100 mls/hr Q8H IV 02/26/25 16:30 02/27/25 08:59 02/26/25 16:53 100 MLS/HR laboratory and microbiology Laboratory Tests 02/26/25 20:57 02/24/25 10:30 Test 02/24/25 10:30 Range/Units Serum Glucose 132 H 74-106 mg/dL Objective -A&O x4. No apparent distress. Affect appropriate -Afebrile, VSS -Chest: heart and lung sounds normal. -Breasts: Nipples intact w/o cracks or soreness -Abdomen: normal BS, soft, non-tender, no rebound or guarding, fundus firm @ U- 1, -Lower abdominal incision site with dressing dry and intact. No edema, erythema or induration -Extremities: no edema or tenderness Problems(with codes): (1) Status post delivery Assessment/Plan A/P: -35 yo now Post operative & ppd # 1 s/p repeat Section, doing well. -Blood Type: O+ -Combo feeding -Rubella Immune -Continue pain management with oral medications as previously ordered -Increase fluid intake and fiber in diet to promote regular bowel movements, Laxative PRN -Extensively discussed and nutrition in the first 48 hours of life. Answered all patient questions and concerns -Educated patient on self-care and warning signs to watch for, including PPH, PPD, and pre-eclampsia -Discussed the importance of early ambulation with patient. -Continue routine care Plan discussed with: Patient, Patient mother Plan discussed with: Patient, Other Visit Coding OBGYN Date of Service: Feb 27, 2025 Billing Provider: PASQUALE PARKER CNM POLICE SHIFT COMMANDER Common Visit Codes: [id number] INP/OBS CARE(HIGH) PASQUALE PARKER CNM Feb 27, 2025 01:19
[2025-02-27] MEDS: PHISODERM TOP SOLN 240ML BTL TOP ONE (08:10)
[2025-02-27] MEDS: ACETAMINOPHEN IV 1000 MG/100ML (10MG/ML) IV ONE (08:30)
[2025-02-27 09:36] LABS: Hematocrit 34.6 % (36.0-46.0); Hemoglobin 11.7 g/dL (12.2-16.2); Mean Corpuscular Hemoglobin 29.8 pg (28.0-32.0); Mean Corpuscular Volume 88.5 fL (80.0-100.0); Nucleated Red Blood Cells % 0.0 %
[2025-02-27] MEDS ORDERED: ONDANSETRON HCL 4 MG/2 ML VIAL IV PRN (10:00)
[2025-02-27] MEDS: SIMETHICONE 80 MG CHEWABLE TABLET PO SCH (13:21)
[2025-02-27] MEDS: HYDROcodone-ACET 5/325MG TAB PO PRN (13:21)
[2025-02-27] MEDS: DOCUSATE SOD 100 MG CAP PO SCH (13:23)
--- NOTE | 2025-02-27 21:04 | DVHPN2 ---
Progress Note Date Seen: Feb 27, 2025 Subjective - S: bleeding is less, eating food without issues, denies lightheaded/dizziness, pain well controlled with oral medications, no concerns with urinating, passing flatus, ambulating well, well O: VSS Chest: heart sounds normal and lung sounds clear bilaterally Abd: soft, non-tender, fundus at -1 below /firm/midline, active bowel sounds, no rebound or guarding Incision: sylke dressing open to air, clean/dry/intact, (edges well approximated) Ext: Non-tender, No edema, 2+ BLE DTRs Lochia: minimal See lab results A: 35yo now PPD#2 s/p Repeat / O Positive RPR : Non Reactive GBS: Unknown Rubella Immune infant Requesting a abdominal binder for home P: D/C home tomorrow Rx sent to pharmacy precautions and preeclampsia warning signs reviewed Instructed to review BCM options on [email or web address] and discuss it at PP visit F/U with [facility] office in 2 weeks Activity: as tolerated, no heavy lifting and nothing in the vagina for 6 weeks vital signs Vital Sign Date Time Temp Pulse Resp B/P (MAP) Pulse Ox O2 Delivery O2 Flow Rate FiO2 02/27/25 15:00 98.1 63 18 114/81 (92) 97 98.1 02/27/25 07:00 Room Air 02/26/25 10:00 2.0 95 Total Intake and Output 02/26/25 02/26/25 02/27/25 15:00 23:00 07:00 Output Total 1350 ml 1200 ml Balance -1350 ml -1200 ml medications Current Medications Medications Dose Ordered Sig/Jordana Route Start Time Stop Time Status Last Admin Dose Admin Diphenhydramine HCl 25 mg Q4HP PRN IV 02/26/25 10:00 Docusate Sodium 100 mg Q12HR PO 02/27/25 10:00 02/27/25 13:23 100 MG Dimethicone 80 mg QID PO 02/27/25 12:00 02/27/25 17:51 80 MG Acetaminophen/ Hydrocodone Bitart 1 tab Q4HPRN PRN PO 02/27/25 10:00 02/27/25 17:52 1 TAB Acetaminophen/ Hydrocodone Bitart 2 tab Q4HPRN PRN PO 02/27/25 10:00 Ondansetron HCl 4 mg Q4HP PRN IV 02/27/25 10:00 laboratory and microbiology Laboratory Tests 02/27/25 08:36 02/24/25 10:30 Test 02/24/25 10:30 Range/Units Serum Glucose 132 H 74-106 mg/dL Objective O: AFVSS Chest: heart and lung sounds normal. Abd soft, non-tender, fundus firm, BS, no rebound or guarding, Incision - dressing and incision clean, dry, intact Ext Neg Homans, Non-tender, edema Lochia - minimal Labs Problems(with codes): (1) Status post delivery Assessment/Plan 35 yo ppd#2 s/p R C/S doing well. Pain control with PO medications Bowel regimen Discharge plan: [ discharge to home 02/28/2025 ] F/U in two week for p.p care Plan discussed with: Patient Visit Coding OBGYN Date of Service: Feb 27, 2025 Billing Provider: AZAR FISHER DO RELAY WORKER Common Visit Codes: [id number] OBS CARE (MOD), [id number] INP/OBS CARE(MOD) RAVI SAMANO CNMAug 2024 21:04
[2025-02-28 03:05] VITALS: BP 107/71; PULSE 60; RESP 20; TEMP 98.5; O2SAT 95
[2025-02-28 09:30] VITALS: BP 102/64; PULSE 77; RESP 20; TEMP 98.3; O2SAT 95
[2025-02-28] MEDS: HYDROcodone-ACET 5/325MG TAB PO PRN (09:45)
--- NOTE | 2025-03-01 19:38 | DVHDS2 ---
Discharge Summary Discharge Summary Date of Admission: Feb 26, 2025 Date of Discharge: Feb 28, 2025 Discharge Diagnosis: Procedures Repeat Section Brief History: A: 35yo now PPD#2 s/p Repeat 02/26 O Positive RPR : Non Reactive GBS: Unknown Rubella Immune infant P: D/C home today Rx sent to pharmacy precautions and preeclampsia warning signs reviewed Instructed to review BCM options on [email or web address] and discuss it at PP visit F/U with [facility] office in 2 weeks Activity: as tolerated, no heavy lifting and nothing in the vagina for 6 weeks Discharge Disposition: Home Discharge Instructions precautions and preeclampsia warning signs reviewed Activity: as tolerated, no heavy lifting and nothing in the vagina for 6 weeks Follow up F/U with [facility] office in 2 weeks Discharge Care Plan Problem Pain, Impaired skin integrity, Risk for infection, Impaired mobility/act. Goals Pain relieved Know Disease Process, Know Procedures Adequate fluid volume Adequate fluid volume Skin remains intact Remain free of infection To perform ADL's w/ help Instructions Take Rx medications, Notify MD of any issues, Keep list of meds w/ you, Call 911 in an emergency, F/U w/ PCP, Provide comfort measures, Educate on timing of meds See pt D/C handouts Importance of mobility Proper handwashing, Avoid infectious people Establish goals Visit Coding OBGYN Date of Service: Feb 28, 2025 Billing Provider: AZAR FISHER DO MANAGER SOCIAL MEDIA Common Visit Codes: [id number] INP/OBS CARE (MOD) RAVI SAMANO CNMAug 2024 19:38
== END 2025-02-28 14:16 | disposition home or self-care (01) | DRG 788 ==
LOC: LDRP 05:18
PROVIDERS: ADMIT Obstetrics & Gynecology; ATTEND Obstetrics & Gynecology
PROC: 10D00Z1 Extraction of Products of Conception, Low, Open Approach (ICD-10-PCS; principal; 2025-02-26 08:50)
DX: O34.211 Maternal care for low transverse scar from previous cesarean delivery (principal); O69.81X0 Labor and delivery complicated by cord around neck, without compression, not applicable or unspecified; O24.429 Gestational diabetes mellitus in childbirth, unspecified control; E66.01 Morbid (severe) obesity due to excess calories; O99.214 Obesity complicating childbirth; Z37.0 Single live birth; Z3A.39 39 weeks gestation of pregnancy
CPT/HCPCS: 36415; 59025; 80053; 80307; 81001; 82962; 85025; 85610; 85730; 86780; 86803; 86850; 86900; 86901; 94760; 94762; 96360; 96361; 96365; 96366; G0378; J0131; J2405; J2590